=== PATIENT | female | born 1940 | race Caucasian/White ===

== ENCOUNTER 2017-05-08 14:08 | Emergency (ER) | payer MEDICARE, MEDICAID ==
[~2017-05-08] VITALS: Ht 152.4 cm; Wt 45.5 kg
[2017-05-08] VITALS (7 sets, daily range): BP systolic 112–129; BP diastolic 49–71; PULSE 67–79; RESP 12–20; O2SAT 88–97
[~2017-05-08 14:08] MED LIST: HYDR-4003 PO; LEVO75TA4 PO; LORA1TAB PO; METO50TA3 PO; NITR0.4T6 SL; ONDA8TAB7 PO; OXYB5TAB10 PO; ROPI3TAB PO; SIMV40TA5 PO
[2017-05-08] MEDS ORDERED: 0.9% Sodium Chloride 500 ML IV ONE (14:17)
--- NOTE | 2017-05-08 14:19 | ED.REPORT ---
HPI-Syncope Date of Service May 08, 2017 ED Provider: Laron Mendez MD This is a 76 year old male with past medical history significant for lung cancer with active treatment, hypertension, hypothyroidism and CT who presents to the ED after a syncopal episode. The patient was apparently sitting in the waiting room prior to lung cancer treatment when her daughter noticed she was making uncomprehending noises and not responsive. The patient does not remember this episode at all, but recalls feeling lightheaded and having a headache just prior to onset and afterwards. Her heart rate was apparently in the 140's and oxygen was saturating in the low 80's. She has not had anything like this before. She denies any chest pain, shortness of breath, nausea, vomiting, abdominal pain and diarrhea. She does not some constipation. She is currently receiving treatment for her lung cancer, but is unaware of the name. Today was supposed to be the first dose. She has had chemo and radiation in the past, but was told 3 weeks ago after a PET scan that her lung cancer was back. Nursing Notes Stated Complaint: PASSED OUT/ ELEVATED HEART RATE Chief Complaint: Neuro Symptoms/ Deficits Nursing Notes Reviewed: Yes Allergies: Coded Allergies: atorvastatin (Verified Allergy, Unknown, UNKNOWN, 11/21/15) codeine (Verified Allergy, Unknown, UNKNOWN, 11/21/15) morphine (Verified Adverse Reaction, Severe, HALLUCINATIONS, 11/21/15) Scheduled Levothyroxine (Levothyroxine) 75 Mcg Tablet 75 MCG PO DAILY Metoprolol Tartrate (Metoprolol Tartrate) 50 Mg Tablet 25 MG PO BID Nitroglycerin SL (Nitroglycerin SL) 0.4 Mg Tab.subl 0.4 MG SL prn Oxybutynin Chloride (Oxybutynin Chloride) 5 Mg Tablet 5 MG PO prn Ropinirole (Ropinirole) 3 Mg Tablet 3 MG PO TID Simvastatin (Simvastatin) 40 Mg Tablet 40 MG PO HS Scheduled PRN Hydrocodone-Acetaminophen 5-325 mg (Hydrocodone-Acetaminophen 5-325 mg) 1 Each Tablet 1-2 TABLET PO q6hrs prn PRN PRN For Pain Lorazepam (Lorazepam) 1 Mg Tablet 1 MG PO BID PRN PRN For Insomnia Ondansetron ODT (Zofran ODT) 8 Mg Tablet 8 MG PO q8hrs prn PRN PRN For Nausea General Time Seen by Provider: 14:45 Chief Complaint Lost consciousness Hx Obtained From: Patient, Daughter Past Medical History Patient History: Family history: Cardiovascular disease MOTHER, Onset:40's - 50 Stroke MOTHER, Onset:50's - [address] 4-5 years ago Lung cancer active Hypothyroidism Hypertension Past Surgical History Hip surgery Smoking History Former Smoker (60 years, 1/2 pack daily) Social History Alcohol Use: Denies alcohol use Drug Use: Denies drug use Review of Systems Constitutional: Denies: Chills, Fever Eyes: Denies: Visual loss bilateral Respiratory: Denies: Shortness of breath Cardiovascular: Reports: Syncope, Denies: Chest pain GI: Reports: Constipation, Denies: Abdominal pain, Diarrhea, Nausea, Vomiting Neurologic: Reports: Headache, Lightheaded, Denies: Bladder dysfunction, Bowel dysfunction, Vision change, Weakness Complete sys rev & neg: except as marked. Physical Exam Initial Vital Signs Vital Signs (First) Date Time Temp Pulse Resp B/P Pulse Ox O2 Delivery O2 Flow Rate FiO2 05/08/17 14:15 79 14 116/58 93 05/08/17 14:50 Room Air 05/08/17 14:51 36.5 2 General/Constitutional: Awake, Alert, No acute distress, Cooperative, Not toxic appearing Appearance / Presentation: Positive: Frail Respiratory / Chest: Breath sounds NL, Breath sounds = bilat, No respiratory distress, No wheezing Cardiovascular: Heart rate NL, Regular rhythm, Heart sounds NL Heart Sounds / Murmur: Positive: Murmur present... (III/) Neurologic: Oriented X3, Speech NL, No sensory deficits, CN II - XII intact Head / Eyes: Atraumatic, Normocephalic, EOMI, No nystagmus, No scleral icterus , Conjunctiva NL Abdomen: Soft, Non-tender Psychiatric: Affect NL, Mood NL, Judgment/insight NL, Thought content NL Interpretation & Diagnostics Lab Results Interpretation Result Diagram: 05/08/17 1430 05/08/17 1430 Test 05/08/17 14:30 White Blood Count 5.2th/mm3 (3.8-10.1) Red Blood Count 3.80mil/mm3 (3.90-5.20) Hemoglobin 10.7g/dL (12.0-15.6) Hematocrit 34.2% (35.0-46.0) Mean Corpuscular Volume 90.0fL (81-100) Mean Corpuscular Hemoglobin 28.2pg (27.0-35.0) Mean Corpuscular Hemoglobin Concent 31.3% (32.0-37.0) Red Cell Distribution Width 13.9% (12.3-15.4) Platelet Count 227bil/L (150-400) Neutrophils (%) (Auto) 69.7% (40-74) Lymphocytes (%) (Auto) 13.4% (14-46) Monocytes (%) (Auto) 12.5% (4-12) Eosinophils (%) (Auto) 3.8% (0-5) Basophils (%) (Auto) 0.4% (0-3) Prothrombin Time 11.6sec (8.1-12.5) Prothromb Time International Ratio 1.08ratio Sodium Level 134mEq/L (134-144) Potassium Level 3.5mEq/L (3.5-5.2) Chloride Level 97mEq/L (97-108) Carbon Dioxide Level 25mmol/L (18-29) Blood Urea Nitrogen 18mg/dL (8-27) Creatinine 0.79mg/dL (0.57-1.00) Estimat Glomerular Filtration Rate 101mL/min (>59) Glucose Level 85mg/dL (60-99) Calcium Level 9.6mg/dL (8.5-10.1) Magnesium Level 1.9mg/dL (1.6-2.6) Total Bilirubin 0.3mg/dL (0.0-1.2) Aspartate Amino Transf (AST/SGOT) 20U/L (0-50) Alanine Aminotransferase (ALT/SGPT) 10U/L (0-32) Alkaline Phosphatase 81U/L (25-165) Troponin T < 0.010ug/L (0.0-0.011) Pro-B-Type Natriuretic Peptide 3645pg/mL (0-738) Total Protein 6.2g/dL (6.4-8.4) Albumin 3.3g/dL (3.4-5.0) Hold Dumont Top Tube Received (Received) Re-Eval/Medical Decision Med Decision/Clinical Course This is a 76-year-old female with history of lung cancer, CT, hypothyroidism, hypertension who presents to the ED after a syncopal episode while sitting down , witnessed by her daughter. Daughter reports she was making incomprehensible sounds and had a heart rate in the 140s and oxygen saturation in the 80s. This is a first-time occurrence for her. Concern is for stroke and pulmonary embolism. CT head did not show any acute findings. CT angiogram of the chest did not show any evidence of pulmonary embolism. Patient was reluctant to be admitted to the hospital for observation and elected to go home instead. It was explained to her that the cause of her syncope is still unknown and she was made aware of the risks of this. Discharge & Departure Impression: Primary Impression: Syncope Additional Impression: Tachycardia Disposition: Home Discharge Condition All VS Reviewed: Yes Condition: Stable Patient Instructions: Syncope (ED) Additional Instructions: Follow-up with her primary care provider within one week. If you are having recurrent episodes of syncope it is recommended to come back to the emergency department. Referrals: Ruma Rodriguez PA-C (PCP) EDSupervising Provider for APC: Laron Mendez MD Attending Statement I discussed patient with resident Anmol. I evaluated patient independently and agree with plan as above. In brief 76-year-old female history of lung cancer who had a syncopal event at [facility]. She reportedly had mumbling speech during this episode. Also on monitor was tachycardic in the 130s during the episode. She does not recall the event. This was witnessed by family members tells me her story. Her CT brain shows no acute pathology. Her labs are unremarkable. Her CT Angio chest shows no PE or acute pathology. Unclear etiology for syncope could be TIA versus arrhythmia versus seizure versus orthostatic versus other. I recommended admission patient declines and requested a home. She understands risk of the possibility of but reports that she is comfortable with this plan and she is comfortable dying of this should happen. She will follow up with primary doctor. Return precautions given. copies to: Clifton Mesa MD; Ruma Rodriguez PA-C, Ben M MD May 08, 2017 14:19 Kris Rudolph DO May 08, 2017 15:21
[2017-05-08 14:55] LABS: BASOPHILS % (AUTO) 0.4 % (0-3); EOSINOPHILS % (AUTO) 3.8 % (0-5); MONOCYTES % (AUTO) 12.5 % (4-12); Mean Corpuscular Hemoglobin 28.2 pg (27.0-35.0); NEUTROPHILS % (AUTO) 69.7 % (40-74); Platelet Count 227 bil/L (150-400)
[2017-05-08 15:10] LABS: INR 1.08 ratio
[2017-05-08 15:23] LABS: TROPONIN T < 0.010 ug/L (0.0-0.011)
[2017-05-08 15:31] LABS: Magnesium 1.9 mg/dL (1.6-2.6)
--- NOTE | 2017-05-08 16:26 | DRSVH ---
PROCEDURE: CT BRAIN WITHOUT CONTRAST ([id number]) INDICATIONS: 76 year-old female with recurrent right lung carcinoma, with near syncope. TECHNIQUE: Noncontrast 4.5 mm thick angled axial sections acquired from the foramen magnum to the vertex, with c oronal reformats. COMPARISON: [facility], MR, MR BRAIN W&WO CON, 04/11/2017, 19:11. FINDINGS: Image quality: Excellent. CSF spaces: Basal cisterns are patent. No extra-axial fluid collections. The ventricles are symmet rolf in size and shape. Brain: No intracranial bleeds or masses. There are moderate periventricular and deep white matter c hronic small vessel ischemic changes. There is intracranial internal carotid artery atherosclerosis. Skull and face: Calvarium and visualized facial bones appear intact, without suspicious lesions. Sinuses: Visualized sinuses and mastoids are clear. IMPRESSION: No acute intracranial abnormalities. Moderate periventricular and deep white matter chron ic small vessel ischemic change. Dictated by: Mihai Calderon M.D. on 05/08/2017 at 14:38 Approved by: Mihai Calderon M.D. on 05/08/2017 at 14:41
--- NOTE | 2017-05-08 16:28 | DRSVH ---
PROCEDURE: X-RAY CHEST ONE VIEW, PORTABLE ([id number]) INDICATIONS: 76 year-old female with shortness of breath and syncope. TECHNIQUE: One view of the chest was acquired. COMPARISON: [facility], [place], PET NECK TO MID THIGH STD, 04/17/2017, 9:53. [facility], [place], XR CHEST 1VW (PORTABLE), 12/01/2015, 13:00. [facility], CR, XR CHEST 2VW, , 11:35. FINDINGS: Surgical changes and devices: Right chest wall Port-A-Cath is again noted. Lungs and pleura: No pleural effusions or pneumothorax. Lungs are clear. Mediastinum: Asymmetric right hilar region mass corresponds with recurrent neoplasm on recent PET CT scan. Heart size is normal. There is aortic atherosclerosis. Bones and chest wall: No suspicious bony lesions. Overlying soft tissues appear unremarkable. IMPRESSION: Recurrent right hilar neoplasm again noted. No superimposed acute cardiopulmonary disease . Dictated by: Mihai Calderon M.D. on 05/08/2017 at 15:24 Approved by: Mihai Calderon M.D. on 05/08/2017 at 15:26
--- NOTE | 2017-05-08 16:46 | DRSVH ---
PROCEDURE: CT ANGIO CHEST PULMONARY EMBOLISM ([id number]) INDICATIONS: dyspnea, syncope r/o pe TECHNIQUE: After the administration of intravenous contrast, 2 mm thick sections acquired from the pulmonary api nicolas to the posterior costophrenic angles. 3-dimensional maximum intensity projection (MIP) coronal a nd sagittal reformats were then acquired through the thorax. For radiation dose reduction, the follo wing was used: automated exposure control, adjustment of mA and/or kV according to patient size. COMPARISON: [facility], CR, XR CHEST 1VW (PORTABLE), 05/08/2017, 15:15. [facility], CT, CT CHEST ABD PELVIS W CON, 08/16/2016, 10:55. [facility], CT, CT CHEST ABD P KEVIN W CON, 11/28/2016, 9:30. [facility], CT, CT CHEST WO CON, 04/04/2017, 10:28. [facility], [place], PET NECK TO MID THIGH STD, 04/17/2017, 9:53. FINDINGS: Image quality: Excellent. Pulmonary arteries: Pulmonary arteries are normal in size, and demonstrate no intraluminal filling d efects to suggest central pulmonary embolism. Lungs and pleura: Mild to moderate emphysema. Irregular mass in the right middle lobe is unchanged. Small right pleural effusion. No pneumothorax. Central and peripheral airways are patent. Mediastinum: Heart size is normal. Small pericardial effusion is slightly increased. There is modera te to severe coronary calcification. Enlarged right hilar and mediastinal lymph nodes are stable. Th oracic aorta is normal in caliber and enhancement with severe calcification consistent with atheroscl erosis. Esophagus is normal in caliber. Small hiatal hernia. Bones and chest wall: No suspicious bony lesions. Mild compression fractures involving T5, T7, T8, a nd L1 are unchanged. Bilateral thyromegaly. No axillary or supraclavicular adenopathy. Abdomen: Visualized upper abdominal solid organs appear normal in the early arterial phase of enhanc ement. IMPRESSION: 1. No evidence for central pulmonary embolism. 2. Irregular mass in the right middle lobe medially is unchanged. 3. Right hilar and mediastinal lymphadenopathy, stable. 4. Small right effusion, slightly increased. 5. Small pericardial effusion, slightly increased. 6. Coronary artery and aortic atherosclerosis. Dictated by: Priyank Pickett M.D. on 05/08/2017 at 16:18 Approved by: Priyank Pickett M.D. on 05/08/2017 at 16:44
[2017-05-08] MEDS ORDERED: HepLOK Flush 100 unit/mL 5 mL Inj ONE (18:01)
== END 2017-05-08 18:31 | disposition home or self-care (01) ==
LOC: SED 14:08
DX: R55 Syncope and collapse (principal); R00.0 Tachycardia, unspecified; I11.9 Hypertensive heart disease without heart failure; I25.2 Old myocardial infarction; C34.90 Malignant neoplasm of unspecified part of unspecified bronchus or lung; E03.9 Hypothyroidism, unspecified; Z87.891 Personal history of nicotine dependence; Z88.5 Allergy status to narcotic agent; Z88.8 Allergy status to other drugs, medicaments and biological substances
CPT/HCPCS: 36415; 70450; 71010; 71275; 80053; 82948; 83735; 83880; 84484; 85025; 85610; 93005; 96360; 99285; J1642; J7030; Q9967